=== PATIENT | female | born 1990 | race Native Hawaiian/Other Pacific Islander ===

== ENCOUNTER 2021-07-10 06:39 | Emergency (ER) | payer OTHER ==
[~2021-07-10] VITALS: Ht 172.7 cm; Wt 81.6 kg
[2021-07-10 06:39] VITALS: BP 162/106; TEMP 99.4
[2021-07-10 07:08] LABS: PLATELET COUNT 150 K/uL (152-353)
[2021-07-10 07:16] LABS: POTASSIUM 2.8 mmol/L (3.6-5.2)
== END 2021-07-10 12:25 ==
LOC: ED 06:39
PROVIDERS: Emergency Medicine
DX: F19.10 Other psychoactive substance abuse, uncomplicated (principal); R45.1 Restlessness and agitation; R44.1 Visual hallucinations; Z11.52 Encounter for screening for COVID-19
CPT/HCPCS: 80053; 80307; 80320; 80329; 81000; 81025; 84132; 85027; 87635; 93005; 96365; 96375; 99285; J2060; U0003

== ENCOUNTER 2023-02-21 15:57 | Inpatient (IN) | payer OTHER ==
[~2023-02-21] VITALS: Ht 170.2 cm; Wt 124.4 kg
[2023-02-21 15:57] VITALS: BP 105/40; TEMP 97.8
[~2023-02-21 15:57] MED LIST: HYDR25TA60 PO; LAMICTAL100 MG PO; ONDANSETRON HYDR8 MG PO; QUETIAPINE100 MG PO
[2023-02-21 16:34] LABS: PLATELET COUNT 151 K/uL (152-353)
[2023-02-21 16:48] LABS: SODIUM 131 mmol/L (136-145)
[2023-02-21 20:57] VITALS: BP 108/41; TEMP 97.6; Ht 170.2 cm; Wt 124.4 kg
[2023-02-21 23:36] VITALS: BP 99/45; TEMP 98.5
[2023-02-22] VITALS (7 sets, daily range): BP systolic 90–107; BP diastolic 35–50; TEMP 98.1–98.9
[2023-02-22 08:43] LABS: PLATELET COUNT 118 K/uL (152-353)
[2023-02-22 08:51] LABS: POTASSIUM 3.6 mmol/L (3.6-5.2)
[2023-02-22] MEDS ORDERED: CYAN10009 IM (09:35)
[2023-02-22] MEDS ORDERED: COZAAR25 MG PO (09:35)
[2023-02-22] MEDS ORDERED: VRAYLAR1.5 MG PO (09:35)
[2023-02-22] MEDS ORDERED: VITAMIN D50000 UNIT PO (09:36)
[2023-02-22] MEDS ORDERED: TRAMADOL HYDROC50 MG PO (09:36)
[2023-02-22] MEDS ORDERED: METHOCARBAMOL PO (09:37)
[2023-02-22] MEDS ORDERED: MOBIC7.5 M1 PO (09:37)
[2023-02-22] MEDS ORDERED: GABA300C2 PO (09:37)
[2023-02-22] MEDS ORDERED: TRAZODONE HYDR150 MG PO (09:38)
[2023-02-22] MEDS ORDERED: ONDANSETRON ODT PO (09:38)
[2023-02-23 03:45] VITALS: BP 85/84; TEMP 98.7
[2023-02-23 05:44] LABS: PLATELET COUNT 102 K/uL (152-353)
[2023-02-23 08:00] VITALS: BP 96/51; TEMP 98.2
[2023-02-23 12:00] VITALS: BP 105/53; TEMP 98.5
[2023-02-23 16:00] VITALS: BP 99/56; TEMP 97.7
[2023-02-23 19:50] VITALS: BP 100/52; TEMP 98.4
[2023-02-23 23:42] VITALS: BP 110/56; TEMP 98.8
[2023-02-24 03:56] VITALS: BP 119/70; TEMP 98.9
[2023-02-24 05:45] LABS: POTASSIUM 3.4 mmol/L (3.6-5.2)
[2023-02-24 06:31] LABS: PLATELET COUNT 98 K/uL (152-353)
[2023-02-24 08:00] VITALS: BP 104/59; TEMP 98.5
[2023-02-24 12:00] VITALS: BP 122/77; TEMP 98.3
[2023-02-24 16:00] VITALS: BP 115/67; TEMP 98.2
[2023-02-24 20:00] VITALS: BP 127/82; TEMP 98.3
[2023-02-25] VITALS: BP 155/86; TEMP 98.5
[2023-02-25 04:00] VITALS: BP 122/72; TEMP 98.7
[2023-02-25 08:00] VITALS: BP 98/50; TEMP 97.9
[2023-02-25 11:56] LABS: PLATELET COUNT 102 K/uL (152-353)
[2023-02-25 12:03] VITALS: BP 122/62; TEMP 97.9
[2023-02-25 12:04] LABS: POTASSIUM 3.4 mmol/L (3.6-5.2)
[2023-02-25 16:00] VITALS: BP 128/66; TEMP 98.5
[2023-02-25 20:00] VITALS: BP 146/75; TEMP 98.9
[2023-02-26] VITALS (7 sets, daily range): BP systolic 124–146; BP diastolic 64–98; TEMP 98.1–99.9
[2023-02-27 03:40] VITALS: BP 126/62; TEMP 97.7
[2023-02-27 06:54] LABS: PLATELET COUNT 127 K/uL (152-353)
[2023-02-27 08:00] VITALS: BP 136/82; TEMP 97.8
[2023-02-27 08:17] LABS: POTASSIUM 3.4 mmol/L (3.6-5.2)
[2023-02-27 11:58] VITALS: BP 139/83; TEMP 98
[2023-02-27 16:00] VITALS: BP 98/65; TEMP 99.1
[2023-02-27] MEDS ORDERED: GABA300C2 PO (18:02)
[2023-02-27] MEDS ORDERED: TRAMADOL HYDROC50 MG PO (18:03)
[2023-02-27] MEDS ORDERED: TRAZODONE HYDR150 MG PO (18:05)
[2023-02-27] MEDS ORDERED: LACTSYP31 PO (18:07)
[2023-02-27] MEDS ORDERED: CIPROFLOXACIN500 M1 PO (18:08)
== END 2023-02-27 19:48 | disposition home or self-care (01) | DRG 690 ==
LOC: ED 15:57 → MED/SURG 18:39
PROVIDERS: Internal Medicine; ADMIT Family Medicine; ATTEND Internal Medicine
DX: N39.0 Urinary tract infection, site not specified (principal); N17.8 Other acute kidney failure; E87.6 Hypokalemia; K76.0 Fatty (change of) liver, not elsewhere classified; B37.2 Candidiasis of skin and nail; F99 Mental disorder, not otherwise specified; F91.8 Other conduct disorders; R41.82 Altered mental status, unspecified
CPT/HCPCS: 36415; 80053; 80074; 80143; 80179; 80307; 80320; 81000; 81025; 82140; 82550; 83605; 83735; 84100; 85027; 87088; 87635; 96361; 96365; 96367; 96375; 96376; 99284; J1450; J2543; J3490; Q9963; U0003